=== PATIENT | female | born 1955 | race Caucasian/White ===

== ENCOUNTER 2018-10-19 16:56 | Emergency (ER) | payer BC ==
[~2018-10-19] VITALS: Ht 160 cm; Wt 60.8 kg
[2018-10-19] MEDS ORDERED: IV NORMAL SALINE 500 ML BAG IV ONE (17:00)
[2018-10-19] MEDS ORDERED: ONDANSETRON 4 MG/2 ML VIAL IV ONE ×2 (17:00→18:15)
[2018-10-19] MEDS ORDERED: NORCO (17:07)
[2018-10-19] MEDS ORDERED: FLEXERIL (17:07)
[2018-10-19 17:16] LABS: BASOPHILS # (AUTO) 0.1 K/uL (0.0-8.0); BASOPHILS % (AUTO) 0.6 % (0.0-2.0); EOSINOPHILS # (AUTO) 0.1 K/uL (0.0-0.7); EOSINOPHILS % (AUTO) 0.8 % (0.0-7.0); HEMATOCRIT 39.9 % (31.2-41.9); HEMOGLOBIN 13.6 g/dL (10.9-14.3); LYMPHOCYTES # (AUTO) 2.2 K/uL (20.0-40.0); LYMPHOCYTES % (AUTO) 25.8 % (20.5-51.5); MEAN CORPUSCULAR HEMOGLOBIN 33.3 uug (24.7-32.8); MEAN CORPUSCULAR HGB CONC 34 g/dL (32.3-35.6); MEAN CORPUSCULAR VOLUME 97.8 fL (75.5-95.3); MONOCYTES # (AUTO) 0.9 K/uL (2.0-10.0); MONOCYTES % (AUTO) 10.9 % (0.0-11.0); NEUTROPHILS # (AUTO) 5.3 K/uL (1.8-8.9); NEUTROPHILS % (AUTO) 61.9 % (38.5-71.5); PLATELET COUNT (AUTO) 239 K/uL (179-408); RED BLOOD CELL COUNT(AUTO) 4.08 MIL/uL (3.63-4.92); WHITE BLOOD COUNT (AUTO) 8.6 K/uL (3.8-11.8)
[2018-10-19] MEDS ORDERED: ONDANSETRON 4 MG/2 ML VIAL ONE (17:17)
[2018-10-19 17:26] LABS: POTASSIUM 3.6 mmol/L (3.5-5.1)
[2018-10-19 17:32] LABS: BILIRUBIN,DIRECT 0.1 mg/dL (0.0-0.2); BILIRUBIN,TOTAL 0.3 mg/dL (0.2-1.0); TOTAL PROTEIN, SERUM 6.9 g/dL (6.4-8.2)
[2018-10-19] MEDS ORDERED: LORAZEPAM 2 MG/1 ML VIAL IV ONE ×2 (17:45→18:30)
[2018-10-19] MEDS ORDERED: LORAZEPAM 2 MG/1 ML VIAL ONE ×2 (17:51→18:33)
[2018-10-19] MEDS ORDERED: HYDROMORPHONE 1 MG/1 ML DISP.SYRIN ONE (18:11)
[2018-10-19] MEDS ORDERED: HYDROMORPHONE 1 MG/1 ML DISP.SYRIN IV ONE (18:15)
--- NOTE | 2018-10-19 18:45 | NUR ---
Patient discharged to home in stable conditon. Written and verbal after care instructions given. Patient verbalizes understanding of instructions.PT SAYS FEELS BETTER. PT ACCOMPANIED BY . THE COPY OF THE STUDIES PROVIDED FOR FOLLOW UP WITH DR. WALKER.PT DENEIS NAUSEA AND PAIN.NO NUMBNESS
== END 2018-10-19 18:49 | disposition home or self-care (01) ==
LOC: ER 16:56
DX: R51 Headache (principal); F41.9 Anxiety disorder, unspecified; R55 Syncope and collapse; Z88.8 Allergy status to other drugs, medicaments and biological substances; Z79.899 Other long term (current) drug therapy
CPT/HCPCS: 36415; 70450; 71045; 80048; 80076; 84484; 85025; 85651; 85730; 93005; 96361; 96374; 96375; 96376; 99284; J1170; J2060 ×2; J2405; 70030-TC; A4663; J7030